=== PATIENT | female | born 1980 | race Caucasian/White ===

== ENCOUNTER 2022-10-11 18:41 | Emergency (ER) | payer SELFPAY ==
[2022-10-11 19:14] VITALS: BP 143/79; PULSE 91; RESP 16; TEMP 36.8; O2SAT 100; BMI 24.2
--- NOTE | 2022-10-11 19:14 | ED.DENTAL ---
HPI - Dental/Oral General Chief complaint: Dental/Oral Stated complaint: molar pain Time Seen by Provider: 10/11/22 19:22 Source: patient Mode of arrival: ambulatory History of Present Illness HPI Narrative: 42-year-old female with no significant past medical history presenting to the ED complaining of molar pain since Sunday. Admits saw her Dentist yesterday, started her on Amoxicillin and Motrin without relief. Reports she has a scheduled root canal on Sunday. Pain keeping her awake at night. Denies chills, ear pain, SOB/CP MD Complaint: tooth pain Related Data Home Medications Medication Instructions Recorded Confirmed loratadine 10 mg tablet 10 mg PO DAILY 06/01/20 naratriptan 2.5 mg tablet mg PO 06/01/20 propranolol 20 mg tablet 20 mg PO BID 06/01/20 sumatriptan succinate 50 mg tablet mg PO 06/01/20 Previous Rx's Medication Instructions Recorded fluticasone propionate 50 2 spray intranasal DAILY 1 month 08/12/20 mcg/actuation nasal #9.9 mL spray,suspension hydrocodone 5 mg-acetaminophen 325 1 tab PO Q8H PRN pain, severe 3 10/11/22 mg tablet days #5 tabs Allergies Allergy/AdvReac Type Severity Reaction Status Date / Time No Known Allergies Allergy Verified 10/11/22 19:14 [No Known Allergies*] Review of Systems Review of Systems: Constitutional: No Fever, No Chills ENT/Mouth: +dental pain, No Ear Pain, No Nasal Congestion, No Sinus Pain, No Hoarseness, No sore throat, No Rhinorrhea, No Swallowing Difficulty Cardiovascular: No Chest Pain, No SOB Respiratory: No Cough, No Sputum Gastrointestinal: No Nausea, No Vomiting, No Diarrhea, No Constipation, No Abdominal pain Musculoskeletal: No joint pain, No Myalgias, No Joint Swelling Skin: No Skin Lesions, No rash Neuro: No Weakness, No Numbness Yes all other systems are reviewed and are negative Constitutional: Constitutional: Reports as per [facility] Past Medical History Attestation statement: The following information was validated with the patient. Surgical History History of tubal ligation Family History Family History Father No problems noted. Mother No problems noted. Family/Other FH: mental illness Social History Social History Advance Directives: No Advance Directives Information Provided: No Physical Exam Vital Signs: Vital Signs: Last Vital Signs Temp 98.2 F 10/11/22 19:14 Pulse 91 10/11/22 19:14 Resp 16 10/11/22 19:14 BP 143/79 H 10/11/22 19:14 Pulse Ox 100 10/11/22 19:14 O2 Del Method 10/11/22 19:14 BMI result Body Mass Index 24.2 Const: General: cooperative, healthy appearing and no acute distress Orientation/consciousness: patient oriented x3 Limitations: no limitations HEENT: Other: Left lower molar with noted gingival tenderness, swelling, and scant bleeding. No fluctuance and induration or cellulitis. No facial swelling. Uvula midline Head: Yes normal to inspection and Yes atraumatic Ears: hearing grossly normal bilaterally General nose exam: Normal external nose present Face and sinus: Yes normal facial exam and No edema Mouth: Normal oral and palatal mucosa present Throat: Yes uvula midline, No peritonsillar mass, No uvula laterally displaced and No uvular edema Eyes: General: appearance normal, both eyes and all related structures EOM: EOMs intact bilaterally Neck: Neck: Yes normal visual inspection, Yes no meningeal signs and No anterior neck swelling Resp: Effort & Inspection: normal respiratory effort and no respiratory distress Cardio: Rate: regular rate Skin: Rashes: no rashes Wounds: no wounds Neuro: General: patient oriented x3, tone normal and no meningeal signs Gait exam (Neuro): Normal gait present Extrem: General: Yes normal to inspection Course Course Course Narrative: Results discussed with patient including worrisome signs and symptoms and strict return precautions, and when to return to the emergency department. They verbalized understanding and feel safe for discharge at this time. Medical Decision Making Medical Decision Making MDM Narrative: 42-year-old female with no significant past medical history presenting to the ED complaining of molar pain since Sunday. On exam vital signs stable, NAD, nontoxic appearing on physical exam as above. Concerns for gingivitis vs early dental abscess. 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 Nontoxic appearing. Handling secretions plan: Encouraged continuation of previously prescribed antibiotics. Pain control. Differential Diagnosis Differential Diagnoses: The differential diagnosis associated with the presentation includes As above Admission/Observation Consideration of admission/observation: Escalation of care including admission/observation considered Lab Data MDM Lab Attestation statement: I reviewed the patient's lab results. Radiology Impression Discussion of test interpretation with radiology: I have reviewed the radiologist's reading. External Record Review External record reviewed: Inpatient record, Office record, Outpatient record, Prior outpatient labs, Prior outpatient radiology, Primary care record and Outside ED record Discharge Plan Discharge Clinical Impression: Toothache Patient Disposition: Home, Self-Care Instructions: Toothache (ED) Additional Instructions: Continue previously prescribed medications [place] is an opiate pain medication, take only when pain is severe for the next 3 days Please follow-up with her dentist If symptoms persist or worsen, pain becomes unbearable, you fever, inability to swallow return to the ED Continuar con los medicamentos prescritos anteriormente [place]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 Si los s?ntomas persisten o empeoran, el dolor se vuelve insoportable, tiene fiebre, incapacidad para tragar, regrese al servicio de urgencias. Prescriptions: New hydrocodone-acetaminophen 5-325 mg tablet 1 tab PO Q8H PRN (Reason: pain, severe) 3 Days Qty: 5 0RF Rx Instructions: Partial Fill upon patient request. No Action fluticasone propionate 50 mcg/actuation spray,suspension 2 spray intranasal DAILY 30 Days Qty: 9.9 11RF propranolol 20 mg tablet 20 mg PO BID sumatriptan succinate 50 mg tablet PO naratriptan 2.5 mg tablet PO loratadine 10 mg tablet 10 mg PO DAILY Referrals: Physician,None [Primary Care Provider] - 3 days Stand Alone Forms: Work/School Release Discharge Date/Time: 10/11/22 19:40 Print Language: Portuguese
== END 2022-10-11 19:40 | disposition home or self-care (01) ==
PROVIDERS: Emergency Provider Emergency Medicine
DX: K08.89 Other specified disorders of teeth and supporting structures (principal); Z79.899 Other long term (current) drug therapy
CPT/HCPCS: 99281; 99283